=== PATIENT | female | born 1990 | race Asian ===

== ENCOUNTER 2019-01-11 09:27 | Emergency (ER) | payer OTHER ==
[2019-01-11 09:40] VITALS: BP 121/81; PULSE 105; TEMP 98.2; BMI 23.0
--- NOTE | 2019-01-11 09:46 | PDOC ---
History of Present Illness - General Chief Complaint: Pain Stated Complaint: NECK PAIN Time Seen by Provider: 01/11/19 09:45 History Source: Patient Exam Limitations: No Limitations Past History - Travel Traveled outside of the country in the last 30 days: No Close contact w/someone who was outside of country & ill: No - Past Medical History Allergies/Adverse Reactions: Allergies Allergy/AdvReac Type Severity Reaction Status Date / Time No Known Allergies Allergy Verified 01/11/19 09:38 Home Medications: Ambulatory Orders Diazepam [Valium] 2 mg PO DAILY #7 tablet MDD 1 01/11/19 Ibuprofen 600 mg PO Q6H #30 tablet 01/11/19 Levothyroxine [Synthroid -] 75 mcg PO DAILY 01/11/19 COPD: No CHF: No DVT: No Dementia: No Thyroid Disease: Yes (hypo) - Immunization History Immunization Up to Date: Yes - Psycho Social/Smoking Cessation Hx Smoking History: Never smoked Hx Alcohol Use: No Drug/Substance Use Hx: No Review of Systems - Review of Systems Able to Perform ROS?: Yes Comments:: 01/11/19 10:01 CONSTITUTIONAL: Absent: fever, chills, diaphoresis, generalized weakness, malaise, loss of appetite HEENT: Present: neck pain Absent: rhinorrhea, nasal congestion, throat pain, throat swelling, difficulty swallowing, mouth swelling, ear pain, eye pain, visual Changes CARDIOVASCULAR: Absent: chest pain, loss of consciousness, palpitations, irregular heart rate, peripheral edema RESPIRATORY: Absent: cough, shortness of breath, dyspnea with exertion, orthopnea, wheezing, stridor, hemoptysis MUSCULOSKELETAL: Present: Myalgia Absent: arthralgia, joint swelling SKIN: Absent: rash, itching, pallor NEUROLOGIC: Absent: headache, focal weakness or paresthesias, dizziness, unsteady gait, seizure, mental status changes, bladder or bowel incontinence PSYCHIATRIC: Absent: anxiety, depression, suicidal or homicidal ideation, hallucinations. Is the patient limited Japanese proficient: No *Physical Exam - Vital Signs Last Vital Signs Temp Pulse Resp BP Pulse Ox 98.2 F 105 H 17 121/81 99 01/11/19 09:36 01/11/19 09:36 01/11/19 09:36 01/11/19 09:36 01/11/19 09:36 - Physical Exam Comments: 01/11/19 10:48 GENERAL: The patient is awake, alert, and fully oriented, in no acute distress. HEAD: Normal with no signs of trauma. EYES: Pupils equal, round and reactive to light, extraocular movements intact, sclera anicteric, conjunctiva clear. NECK: tenderness of the paraspinous muscles on the right side see 3 to C7 with palpable spasm. Decreased range of motion when moved into the left due to pain. No lymphadenopathy. No thyromegaly. EXTREMITIES: Normal range of motion, no edema. NEUROLOGICAL: Normal speech, normal gait. PSYCH: Normal mood, normal affect. SKIN: Warm, Dry, normal turgor, no rashes or lesions noted. Medical Decision Making - Medical Decision Making 01/11/19 10:53 the patient is a 28-year-old female with a past medical history who presents to the ER today with neck stiffness on the right side. She states she woke up unable to move her head to the left. She notes that she has palpable muscle spasms on the right. She is not taking any medication for pain. Denies fevers , chills, trauma, numbness and tingling to the upper extremities or weakness to the upper extremities. A/P: Neck pain On exam patient with palpation of the right paraspinous muscles of the cervical spine C3-C7. Decreased range of motion due to pain Patient is largely intact with no focal findings. No radiculopathy Toradol, lidocaine patch and Flexeril given with relief of symptoms. Cervical spine x-ray shows straightening of the C-spine consistent with muscle spasm Discharge home with supportive therapy and recommend physical therapy I discussed the physical exam findings, ancillary test results and final diagnoses with the patient. I answered all of the patient's questions. The patient was satisfied with the care received and felt comfortable with the discharge plan and treatment plan. The Patient agrees to follow up with the primary care physician/specialist within 24-72 hours. Return precautions were given. Discharge - Discharge Information Problems reviewed: Yes Clinical Impression/Diagnosis: Neck muscle spasm Condition: Stable Disposition: HOME - Admission No - Additional Discharge Information Prescriptions: Diazepam [Valium] 2 mg PO DAILY #7 tablet MDD 1 Ibuprofen 600 mg PO Q6H #30 tablet - Follow up/Referral Referrals: Sunshine Castillo MD [Primary Care Provider] - - Patient Discharge Instructions Patient Printed Discharge Instructions: DI for Neck Pain Additional Instructions: You were evaluated for your neck pain today. It is most likely due to a spasm. Your x-ray was negative for disc pathology or broken bones. Please take Motrin 600 mg every 6 hours for pain. You may take the Valium at night before bed. Do not drink or drive after taking this medication as it may make you drowsy. Apply warm compresses to the area for 20-minute intervals. Follow-up with your primary care doctor this week. Return to the ER for worsening pain, numbness and tingling down the arm, or if you have any changes in your symptoms. - Post Discharge Activity
[2019-01-11] MEDS ORDERED: KETOROLAC TROMETHAMINE 60 MG/2 ML VIAL IM ONE (10:01)
[2019-01-11] MEDS ORDERED: LIDOCAINE 5% TOPICAL PATCH TP ONE (10:01)
[2019-01-11] MEDS ORDERED: KETOROLAC TROMETHAMINE 60 MG/2 ML VIAL ONE (10:03)
[2019-01-11] MEDS ORDERED: LIDOCAINE 5% TOPICAL PATCH ONE (10:03)
== END 2019-01-11 11:06 | disposition home or self-care (01) ==
LOC: JERFT 09:27 → JER 09:27 → JERFT 11:06
PROC: 3E0233Z Introduction of Anti-inflammatory into Muscle, Percutaneous Approach (ICD-10-PCS; principal; 2019-01-11)
DX: M62.838 Other muscle spasm (principal)
CPT/HCPCS: 72050-TC-FY; 99281-25